=== PATIENT | female | born 1935 | race Caucasian/White ===

== ENCOUNTER → 2019-01-14 | Day surgery (SDC) | payer OTHER ==
--- NOTE | 2019-01-15 18:26 | PATH ---
Surgical Pathology Report Patient Name: CALIN WILLETT [facility]. Rec. #: [id number] /Age/Gender: 1935 (Age: 83) / F Account: [id number] Location: [facility] Taken: 01/14/2019 Received: 01/14/2019 Reported: 01/15/2019 Physicians: Tiffany Ruby M.D. Specimen(s) Received A: LEFT BREAST SPECIMEN WITH CALCIFICATIONS B: LEFT BREAST SPECIMEN WITHOUT CALCIFICATIONS Clinical History Nonpalpable lesion Mammographic findings: Microcalcification, suspicious Final Diagnosis A. LEFT BREAST SPECIMEN WITH CALCIFICATIONS, STEREOTACTIC CORE BIOPSY: DUCTAL CARCINOMA IN SITU (DCIS), INTERMEDIATE NUCLEAR GRADE, SOLID TYPE, WITH ASSOCIATED MARKED NECROSIS AND CALCIFICATIONS. Report for ER, WV to follow as an addendum. B. LEFT BREAST SPECIMEN WITHOUT CALCIFICATIONS, STEREOTACTIC CORE BIOPSY: BREAST TISSUE WITH STROMAL FIBROSIS AND MICROCALCIFICATIONS. Electronically Signed Dallin Rodriguez M.D. Addendum Reported: 01/17/2019 Addendum Diagnosis A Results of Estrogen Receptor (ER) and Progesterone Receptor (WV) studies performed on block "A1" at [facility] are as follows: ER (clone [id number] mouse monoclonal antibody by Leica): 40% nuclear staining with weak intensity (Positive). WV (clone16 mouse monoclonal antibody by Leica): 0% nuclear staining (Negative). Positive and negative controls (internal if applicable) show appropriate results. Formalin fixation and cold ischemic times are within current ASCO/CAP recommendations for ER, WV and Her2 testing. Dallin Rodriguez M.D. Gross Description A. Received in formalin labeled "left breast with calcifications," is a 1.8 x 1.7 x 0.3 cm aggregate of multiple pascual-yellow, irregular to cylindrical portions of fibroadipose tissue. The formalin is filtered and the specimen is entirely submitted in one cassette. B. Received in formalin labeled "left breast without calcifications," is a 2.1 x 1.5 x 0.3 cm aggregate of multiple pascual-yellow, irregular to cylindrical portion of the fibroadipose tissue. The formalin is filtered and the specimen is entirely submitted in one cassette. Time to formalin fixation: 5 minutes Total formalin fixation time: Approximately 6 hours. DL/01/14/2019 saudi/01/14/2019
== END | disposition home or self-care (01) ==
LOC: FMAMMOTONE 11:02
PROVIDERS: ATTEND Surgery Surgical Oncology
PROC: 0H9U3ZX Drainage of Left Breast, Percutaneous Approach, Diagnostic (ICD-10-PCS; principal; 2019-01-14)
DX: D05.12 Intraductal carcinoma in situ of left breast (principal)
CPT/HCPCS: 19081; 88305-TC; 88342-TC

== ENCOUNTER 2019-02-25 09:48 | Inpatient (IN) | payer OTHER ==
[2019-02-17 11:22] VITALS: BMI 30.8
--- NOTE | 2019-02-20 10:39 | HP ---
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 Stereotactic core bx of the calcifications revealed intermediate grade DCIS ER pos and DE negative. Patient has opted to have a left mastectomy without reconstruction. History Source: Patient Limitations to Obtaining History: No Limitations - Past Medical History Cardiovascular: Yes: AFIB (episodes of afib after valve replacement 2010), Aortic Stenosis (h/o aortic valve replacement (2010)), CAD, Hyperlipdemia Pulmonary: Yes: Cancer (right breast cancer 1982) Rheumatology: Yes: Gout (pseudogout) Endocrine: Yes: Diabetes Mellitus Additional Past Medical History: Vitamin D def - Past Surgical History Past Surgical History: Yes: Mastectomy (right mastectomy 1982), Valve Replacement (aortic valve replacement 2010) - Smoking History Smoking history: Never smoked - Alcohol/Substance Use Hx Alcohol Use: No Home Medications - Allergies Allergies/Adverse Reactions: Allergies Allergy/AdvReac Type Severity Reaction Status Date / Time No Known Allergies Allergy Verified 02/17/19 11:10 - Home Medications Home Medications: Ambulatory Orders Aspirin [Aspirin EC] 81 mg PO DAILY 02/17/19 C,E,Zinc,Copper 11/Jomxc2f/Lut [Ocuvite Adult 50 Plus Softgel] 1 each PO DAILY 02/17/19 Calcitonin-[place] [Miacalcin] 0 ml NS DAILY 02/17/19 Calcium 250Mg/Vit-D 125 Units [Oscal 250 mg+D -] 1 combo PO DAILY 02/17/19 Cholecalciferol (Vitamin D3) [Vitamin D3] 2,000 unit PO DAILY 02/17/19 Colchicine 0.6 mg PO DAILY 02/17/19 Metoprolol Succinate [Toprol Xl] 50 mg PO DAILY 02/17/19 Simvastatin [Zocor] 20 mg PO HS 02/17/19 Family Medical History Family Hx Cancer: Father (colon cancer) Review of Systems - Review of Systems Constitutional: reports: No Symptoms Respiratory: reports: No Symptoms Physical Examination Constitutional: Yes: Well Nourished, Calm Breast(s): Yes: Other (No suspicious palpable masses noted in the left breast. Right chest wall without any evidence of suspicious masses. No suspicious palpable adenopathy noted bilaterally.) Problem List - Problems (1) Ductal carcinoma in situ (DCIS) of left breast Code(s): D05.12 - INTRADUCTAL CARCINOMA IN SITU OF LEFT BREAST Assessment/Plan Left mastectomy with sentinel node biopsy, possible axillary node dissection
[2019-02-25] MEDS ORDERED: BUPIVACAINE HCL/PF 0.5% (5MG/ML) 10 ML VIAL ONE (13:12)
[2019-02-25] MEDS ORDERED: ISOSULFAN BLUE 10 MG/ML VIAL SQ ONE (13:12)
[2019-02-25] MEDS ORDERED: MIDAZOLAM HCL 2 MG/2 ML SINGLE DOSE VIAL ONE (13:22)
[2019-02-25] MEDS ORDERED: PROPOFOL 20 ML ONE (13:37)
[2019-02-25] MEDS ORDERED: LIDOCAINE HCL/PF 2% SDV 5ML VIAL ONE (13:37)
[2019-02-25] MEDS ORDERED: ceFAZolin SODIUM 1 GM VIAL ONE (13:52)
[2019-02-25] MEDS ORDERED: DEXAMETHASONE SOD PHOSPHATE 4 MG/1 ML VIAL ONE (14:02)
[2019-02-25] MEDS ORDERED: ONDANSETRON 4 MG/2 ML VIAL ONE (14:02)
[2019-02-25] MEDS ORDERED: METOPROLOL TARTRATE 5 MG/5 ML VIAL ONE (14:11)
[2019-02-25] MEDS ORDERED: ZOLPIDEM TARTRATE 5 MG TABLET PO PRN (16:31)
[2019-02-25] MEDS ORDERED: ACETAMINOPHEN 325 MG TABLET (FP) PO PRN (16:31)
[2019-02-25] MEDS ORDERED: ONDANSETRON 4 MG/2 ML VIAL IVPUSH PRN ×2 (16:31→16:34)
[2019-02-25] MEDS ORDERED: oxyCODONE HCL 5 MG TABLET PO PRN ×2 (16:31→16:34)
[2019-02-25] MEDS ORDERED: ACETAMINOPHEN 1000 MG/100 ML VIAL (NON FORMULARY) IVPB PRN (16:35)
[2019-02-25] MEDS ORDERED: DEXTROSE 5%-0.45% SALINE 1,000 ML IV SCH (16:45)
[2019-02-25] MEDS ORDERED: LACTATED RINGERS SOLUTION 1,000 ML IV SCH (16:45)
[2019-02-25] MEDS: CEFAZOLIN 1 GM/D5W 1 GM/50 ML BAG IVPB SCH (20:28)
[2019-02-25] MEDS ORDERED: PATIENT'S OWN MEDICATION (NON-FORMULARY) (Simvastatin [Zocor] 20 MG) PO SCH (22:00)
[2019-02-25] MEDS ORDERED: ATORVASTATIN CA 10 MG TABLET (FP) PO SCH (22:00)
--- NOTE | 2019-02-25 22:45 | OP ---
DATE OF OPERATION: 02/25/2019 PREOPERATIVE DIAGNOSIS: Left breast ductal carcinoma in situ with history of right breast cancer status post mastectomy in the past. POSTOPERATIVE DIAGNOSIS: Left breast ductal carcinoma in situ with history of right breast cancer status post mastectomy in the past. PROCEDURE: Left breast total mastectomy with a left axillary sentinel lymph node biopsy with no reconstruction. ANESTHESIA: General endotracheal anesthesia. SURGEON: Rebeca Rankin MD. BUNDLE WRAPPER: DORINA Luis. COMPLICATIONS: There were no complications. DESCRIPTION OF PROCEDURE: Briefly, the patient is an 83-year-old postmenopausal white female with no family history of breast cancer. She underwent a right breast total mastectomy back in 1982 for a malignant cystosarcoma phyllodes tumor and received no adjuvant therapy. He had been doing well and has been getting routine annual mammography in the left breast. She was found to have some central calcifications in the left breast and stereotactic core biopsy on January 14, 2019, showed intermediate grade DCIS which was ER positive and AR negative. The patient could not get an MRI. She was given the option of wide excision, however chose to undergo a mastectomy since she had had a prior mastectomy on the right side and declined any reconstruction option. The patient is brought in for the procedure today on February 25, 2019. She first underwent lymphoscintigraphy through a periareolar injection of technetium 99 at [facility], and was brought to the [place] holding area. In the holding area, site verification was made, and informed consent was obtained. She was brought into the operating room and laid on the OR table in a supine position. Venodynes were placed on the lower extremities prior to induction. She received a gram of Ancef prior to incision. She underwent general endotracheal anesthesia in the left breast, was sterilely prepped and draped in the usual fashion. Then 3 mL of Lymphazurin blue were injected intradermally around the left breast nipple areolar complex and massage was instituted. Timeout was performed. Incision was made just below the hair bearing area of the left axilla. Dissection was undertaken, and 3 hot blue nodes were easily found in the level 1 region of the left axilla. The 1st sentinel lymph count had a 10-second gamma count of 4102 and the 2nd sentinel lymph node had a 10-second gamma count of 8853. The 3rd sentinel lymph node was extremely small and too small to do a frozen section on. It was sent for permanent section. The frozen section on the 2 sentinel nodes came back negative, so no further nodes were removed. Hemostasis was achieved. Background counts after removing these 3 nodes was 617. At this point, the mastectomy was performed, incorporating the axillary sentinel lymph node incision into the mastectomy incision. Skin flaps were raised superiorly to the level of the clavicle, medially to the level of the sternum, laterally to the level of the latissimus, and inferiorly below the level of the inframammary fold. Breast was taken out off pectoralis major muscle from medial to lateral completely removed intact. It was oriented with a long lateral, short superior suture, and specimen radiographs showed removal of the clip in question. Hemostasis was achieved, and the wound was copiously irrigated. Two 15 Rosas drains were then placed in the mastectomy wound, one towards the axilla, one underneath the mastectomy flaps and brought through separate stab incisions on the lateral skin flap and secured in place using 3-0 nylon suture. At this point, skin edges were trimmed for a good cosmetic result, and the skin was closed using interrupted 3-0 deep dermal Vicryl suture. Subcuticular 4-0 Biosyn suture was then used and run to close the skin. Steri-Strips and Mastisol were placed over the wound to compress the dressing placed over this. She was placed in a chest compression garment postoperatively. The patient tolerated the procedure well without difficulty and the Rosas drains were placed on suction. Both sponge and needle counts were correct at the end of the case, and estimated blood loss was about 100 mL, and she was hemodynamically stable throughout. The patient was extubated at the end of the case and will be recovered and then admitted postoperatively for pain and wound management. REBECA RANKIN M.D. [id number]
[2019-02-26] MEDS: CEFAZOLIN 1 GM/D5W 1 GM/50 ML BAG IVPB SCH ×2 (02:15→10:06)
[2019-02-26 07:00] VITALS: BP 152/69; PULSE 88; TEMP 98
[2019-02-26 08:08] LABS: HEMATOCRIT 39.4 % (32.4-45.2); HEMOGLOBIN 13.3 GM/dl (10.7-15.3); MCH 31.3 pg (25.7-33.7); MCHC 33.6 g/dl (32.0-36.0); MEAN CELL VOLUME 93.1 fl (80-96); MEAN PLT VOLUME 9.4 fl (7.5-11.1); PLATELET COUNT 161 K/MM3 (134-434); RBC 4.23 M/mm3 (3.60-5.2); RDW 12.7 % (11.6-15.6); WHITE BLOOD COUNT 10.6 K/mm3 (4.0-10.8)
[2019-02-26] MEDS ORDERED: COLCHICINE 0.6 MG CAP PO SCH (10:00)
[2019-02-26] MEDS ORDERED: CHOLECALCIFEROL (VIT D3) 1,000 UNIT (25 MCG) TABLET PO SCH (10:00)
[2019-02-26] MEDS ORDERED: CALCIUM 250MG/VIT-D 125 UNITS 1 COMBO TABLET PO SCH (10:00)
[2019-02-26] MEDS ORDERED: HEPARIN NA (PORCINE) 5,000 UNITS/ML 1ML VIAL SQ SCH (22:00)
--- NOTE | 2019-03-03 13:03 | PATH ---
Surgical Pathology Report Patient Name: CALIN WILLETT Med. Rec. #: [id number] /Age/Gender: 1935 (Age: 83) / F Account: [id number] Location: [facility] MED-SURG Taken: 02/25/2019 Received: 02/25/2019 Reported: 03/03/2019 Physicians: Tomas Rankin M.D. Specimen(s) Received A: LEFT AXILLARY SENTINEL NODE #1 (FS) B: LEFT AXILLARY SENTINEL NODE # 2 (FS) C: LEFT AXILLARY SENTINEL NODE # 3 (PERMANENT) D: LEFT BREAST MASTECTOMY Clinical History H/o R mastectomy, now L breast DCIS Intraoperative Consult Diagnosis A. Left sentinel node #1, frozen section: One negative lymph node (0/1). B. The sentinel node #2, frozen section: One negative lymph node (0/1). Tiffany Agudelo, 02/25/19 Final Diagnosis A. lymph node, left axillary sentinel #1, excision (FS): One lymph node, negative for metastatic carcinoma (0/1). B. Lymph node, left axillary sentinel #2, excision (FS): One lymph node, negative for metastatic carcinoma (0/1). C. Lymph node, left axillary sentinel #3, excision: One lymph node, negative for metastatic carcinoma (0/1). D. breast, left, total mastectomy: Ductal carcinoma in situ (DCIS), [place]EDO and Solid type, high nuclear grade with extensive necrosis and associated calcifications, present in the upper outer quadrant (UOQ). DCIS is present in four of fifteen slides (4/15), with the largest contiguous focus of DCIS measuring 1.0 cm in greatest dimension, microscopically. Skin, nipple and Surgical margins are uninvolved by DCIS. Prior biopsy site changes are present. Remaining breast tissue shows RADIAL SCAR, few foci of atypical ductal hyperplasia (ADH), columnar cell change and associated calcifications. Pathologic stage (pTNM): ptis (DCis) pN0. see also DCIS case summary below. Comments DCIS of the Breast: Surgical Pathology Cancer Case Summary (Based on AJCC TNM 8 th edition) Procedure _X_ Total mastectomy Specimen Laterality _X_ Left Size (Extent) of DCIS Estimated size (extent) of DCIS (greatest dimension using gross and microscopic evaluation): at least 10 mm Number of blocks with DCIS: 4 Number of blocks examined: 15 Histologic Type _X_ Ductal carcinoma in situ Architectural Patterns _X_ Comedo _X_ Solid Nuclear Grade _X_ Grade III (high) Necrosis _X_ Present, central (expansive "comedo" necrosis) Margins _X_ Uninvolved by DCIS _X_ Cannot be determined (No inked margins are present in tissue sections with DCIS; no DCIS is present in tissue sections designated as anterior soft tissue and deep/posterior margins). Regional Lymph Nodes _X_ Uninvolved by tumor cells Number of Lymph Nodes Examined: 3 Number of Kiron Nodes Examined : 3 Extranodal Extension: _X_ Not applicable Pathologic Stage Classification (pTNM, AJCC 8th Edition) Primary Tumor (pT) _X_ pTis (DCIS): Ductal carcinoma in situ Regional Lymph Nodes (pN) _X_ pN0 Microcalcifications _X_ Present in DCIS _X_ Present in nonneoplastic tissue Biomarker Studies Results of ER and [place] studies performed on prior biopsy ([id number]) at [facility] are as follows: ER (clone 6F11 mouse monoclonal antibody by Leica): 40 % nuclear staining with weak intensity (positive). NH (clone16 mouse monoclonal antibody by Leica) : 0 % nuclear staining (negative). Electronically Signed Pippa Garcia M.D. Gross Description A. Received fresh for frozen section evaluation, labeled "left sentinel node #1" is a 1.2 x 0.4 x 0.2 cm in with attached fatty tissue. Frozen section is performed on the lymph node. The frozen section residue is entirely submitted in one cassette. B. Received fresh for frozen section evaluation, labeled "left sentinel node #2" is a 1.3 x 0.8 x 0.3 cm lymph node with attached fatty tissue. The lymph node is bisected and frozen section is performed on the lymph node. The frozen section residue is entirely submitted. One cassette. C. Received in formalin labeled "left axillary sentinel node #3," is a 0.2 x 0.2 x 0.1 cm lymph node with attached fat. The specimen is submitted in toto in one cassette. D. Received in formalin, labeled "left mastectomy," is a 993 gram, 20.0 x 19.0 x 5.5 cm. left mastectomy specimen with a short suture marking the superior aspect and a long suture marking the lateral aspect of the specimen, per the surgeon. The anterior surface displays a 19.5 x 12.0 cm a pascual, elliptical portion of skin with a 1.1 cm in diameter nipple. The deep margin is inked black and the anterior soft tissue margin is inked blue. The specimen is serially sectioned from medial to lateral. Sectioning reveals a focus of hemorrhage surrounded by firm fibrous tissue in the central to upper outer quadrant (UOQ), consistent with a previous biopsy site. The previous biopsy site is 2 cm from the deep margin. The remaining breast parenchyma displays multiple foci of focally firm fibrous tissue. No definitive mass is identified. Sewing Machine Operator Plastic Zipper sections are submitted in 15 cassettes as follows: 1-serially sectioned nipple; 2-subareolar shave; 1-5-ccrxqhyb biopsy site with surrounding fibrous tissue 5-additional fibrous tissue surrounding previous biopsy site; 9-1-lfuvxygvep upper outer quadrant; 8-9-lower outer quadrant; 10-11-upper inner quadrant; 12-13-lower inner quadrant; 14-skin and anterior soft tissue margin; 15-deep margin. Time to formalin fixation: 10 minutes Total formalin fixation time: Approximately 25 hours. AE/02/25/2019 ebram/02/25/2019
== END 2019-02-26 12:32 | disposition home or self-care (01) | DRG 581 ==
LOC: EDSTATUS 11:30 → FM/S 11:49
PROVIDERS: ADMIT Surgery Surgical Oncology; ATTEND Surgery Surgical Oncology
PROC: 0HTU0ZZ Resection of Left Breast, Open Approach (ICD-10-PCS; principal; 2019-02-25 14:10)
PROC: 07B60ZX Excision of Left Axillary Lymphatic, Open Approach, Diagnostic (ICD-10-PCS; 2019-02-25 14:10)
DX: D05.12 Intraductal carcinoma in situ of left breast (principal); I48.91 Unspecified atrial fibrillation; Z95.2 Presence of prosthetic heart valve; I25.10 Atherosclerotic heart disease of native coronary artery without angina pectoris; E78.5 Hyperlipidemia, unspecified; Z85.3 Personal history of malignant neoplasm of breast; M10.9 Gout, unspecified; E11.9 Type 2 diabetes mellitus without complications
CPT/HCPCS: 36415; 76098-TC-FY; 78195-TC; 85027; 88307-TC; 88331-TC; 94760; A9541; J0131